=== PATIENT | female | born 1995 | race Two or more races ===

== ENCOUNTER 2018-01-30 20:04 | Emergency (ER) | payer SELFPAY ==
[~2018-01-30] VITALS: Ht 157.5 cm; Wt 76.2 kg
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
[2018-01-30] MEDS ORDERED: IBUPROFEN600 MG ORAL (22:27)
[2018-01-30] MEDS ORDERED: NORCO 5-325 TA1 EACH ORAL (22:27)
[2018-01-30 22:52] VITALS: BP_SYST 108; BP_SYST 11; BP_SYST 111; BP_DIAS 74; BP_DIAS 79
--- NOTE | 2018-01-31 09:48 | Diagnostic Imaging Report ---
Indication: Headache Technique: Contiguous 5 mm thick transaxial imaging of the head obtained in a Siemens Sensation [address] scanner. Soft tissue and bone windows generated. Automatic Exposure Control was utilized. Total Dose length Product (DLP): 1397.[address] Dose Index Volume (CTDIvol): 70.38 mGy Comparison: none Findings: The size and configuration of the cortical sulci, basal cisterns, and ventricles are within normal limits for age. There is no mass effect, midline shift, or edema identified. There is no evidence of acute hemorrhage or abnormal intra-axial or extra-axial fluid collections. The bones and soft tissues are unremarkable. Impression: No mass effect, edema or acute bleed. The CT scanner at [facility] is accredited by the [employer] and the scans are performed using dose optimization techniques as appropriate to a performed exam including Automatic Exposure control.
--- NOTE | 2018-01-31 10:23 | Diagnostic Imaging Report ---
Indication: Pain 3 views of the left knee were obtained. Findings: No acute fracture, malalignment, or joint effusion are identified. Joint space is relatively well-maintained. Impression: Negative for acute injury
--- NOTE | 2018-01-31 10:24 | Diagnostic Imaging Report ---
Indication: left shoulder pain Findings: 3 views of the left shoulder were obtained. Alignment of the left shoulder is normal. No acute fracture is identified. Soft tissues are unremarkable. Impression: No acute injury
--- NOTE | 2018-01-31 10:24 | Diagnostic Imaging Report ---
Indication: Back pain Comparison: None Findings: 2 views of the thoracic spine were obtained. Normal alignment is demonstrated. Vertebral body heights and intervertebral disc heights are normal. The posterior elements including the facets are unremarkable. Soft tissues are unremarkable. Impression: No acute injury appreciated.
--- NOTE | 2018-01-31 10:24 | Diagnostic Imaging Report ---
Indication: Chest pain Comparison: None A single view chest radiograph was obtained. Findings: Cardiomediastinal appearance is within normal limits for age. Pulmonary vascularity is appropriate. The diaphragmatic contour is smooth and costophrenic angles are sharp. No pleural effusions are identified. The bones are unremarkable. Cholecystectomy clips noted. Impression: No acute findings
--- NOTE | 2018-01-31 10:25 | Diagnostic Imaging Report ---
Indication: pain. Left hand pain Findings: 3 views of the left hand were obtained. Normal alignment is demonstrated. No acute fractures, erosions, or periosteal reaction are seen. Soft tissues are unremarkable. Impression: No acute findings.
== END 2018-01-30 22:53 | disposition home or self-care (01) ==
LOC: EMR 21:23
DX: S40.012A Contusion of left shoulder, initial encounter (principal); S60.222A Contusion of left hand, initial encounter; S20.219A Contusion of unspecified front wall of thorax, initial encounter; V43.52XA Car driver injured in collision with other type car in traffic accident, initial encounter; Y92.410 Unspecified street and highway as the place of occurrence of the external cause; M54.5 Low back pain; R51 Headache
CPT/HCPCS: 70450; 71045; 72070; 81025; 99284

== ENCOUNTER 2018-10-05 12:34 | Emergency (ER) | payer SELFPAY ==
[~2018-10-05] VITALS: Ht 157.5 cm; Wt 74.4 kg
[~2018-10-05 12:34] MED LIST: IBUPROFEN600 MG ORAL; NORCO 5-325 TA1 EACH ORAL
[2018-10-05] MEDS ORDERED: NKM (12:49)
[2018-10-05 13:15] VITALS: BP 112/79
--- NOTE | 2018-10-05 13:20 | Emergency Room Report ---
History of Present Illness General Chief Complaint: Upper Respiratory Illness Source: Patient Present Illness HPI 23 YO female to the emergency department complaining of cough, 2 out of 10 in severity right ear pain with sore throat, nasal congestion and rhinorrhea 3 days. Patient denies fevers or chills. Patient reports history of allergies. Patient denies headache, photophobia or neck pain/stiffness. Patient denies recent travel or ill contacts. Patient denies trauma to the ear or discharge from the ear. She denies sputum production and denies history of asthma. Patient reports she does feel as though she does have some wheezing. No other aggravating or relieving factors. Allergies: Coded Allergies: No Known Allergies (Unverified , 01/30/18) Patient History Past Medical History: see triage record Past Surgical History: none Pertinent Family History: none Last Menstrual Period: 04/04/18 Now: No Reviewed Nursing Documentation: PMH: Agreed; PSxH: Agreed Nursing Documentation-PMH Past Medical History: No Stated History Review of Systems All Other Systems: negative except mentioned in HPI Physical Exam Vital Signs Date Time Temp Pulse Resp B/P (MAP) Pulse Ox O2 Delivery O2 Flow Rate FiO2 10/05/18 12:46 97.9 95 18 108/77 97 Room Air Sp02 EP Interpretation: reviewed, normal General Appearance: no apparent distress, alert, GCS 15, non-toxic Head: normocephalic, atraumatic Eyes: bilateral eye normal inspection, bilateral eye PERRL ENT: hearing grossly normal, normal voice Neck: full range of motion Respiratory: chest non-tender, lungs clear, normal breath sounds, no respiratory distress, no accessory muscle use, speaking full sentences, wheezing - scant Cardiovascular #1: regular rate, rhythm, no edema Gastrointestinal: normal bowel sounds, non tender, soft Rectal: deferred Genitourinary: normal inspection Musculoskeletal: back normal, gait/station normal, normal range of motion, non- tender Neurologic: alert, oriented x3, responsive, motor strength/tone normal, sensory intact, speech normal, grossly normal Psychiatric: judgement/insight normal Skin: normal color, no rash, warm/dry, well hydrated Lymphatic: no adenopathy Medical Decision Making PA Attestation Dr. Boyle is my supervising Physician whom patient management has been discussed with. Diagnostic Impression: Primary Impression: Acute bronchitis Qualified Codes: J20.9 - Acute bronchitis, unspecified ER Course Ddx considered but are not limited to URI, pneumonia, PE, strep pharyngitis, meningitis. Vital signs: Pt.is afebrile VS are WNL H&PE are most consistent with bronchitis ORDERS: none required at this time, the diagnosis is clinical ED INTERVENTIONS: None required at this time. DISCHARGE: At this time pt. is stable for d/c to home. Will provide printed patient care instructions, and any necessary prescriptions. Care plan and follow up instructions have been discussed with the patient prior to discharge. Last Vital Signs Date Time Temp Pulse Resp B/P (MAP) Pulse Ox O2 Delivery O2 Flow Rate FiO2 10/05/18 12:52 95 18 Room Air 10/05/18 12:46 97.9 108/77 97 Disposition: HOME, SELF-CARE Condition: Stable Scripts Oxymetazoline HCl (Afrin) 15 Ml [place] 2 SPRAYS NASAL TWICE A DAY, #30 SPRAY DO NOT USE FOR MORE THAN 3 CONSECUTIVE DAYS. Prov: Amairani Ariza 10/05/18 Cetirizine Hcl/Pseudoephedrine (ZYRTEC-D TABLET) 1 Each Tab.er.12h 1 EACH ORAL Q12HR, #30 TAB Prov: Amairani Ariza 10/05/18 Codeine/Promethazine Hcl* (PROMETHAZINE-CODEINE SYRUP*) 118 Ml Syrup 5 ML ORAL Q6H PRN for For Cough, #120 ML 0 Refills Prov: Amairani Ariza 10/05/18 Albuterol Sulfate* (ALBUTEROL SULFATE MDI*) 8.5 Gm Hfa.aer.ad 2 PUFF INH Q4H, #1 INH 0 Refills Prov: Amairani Ariza 10/05/18 Departure Forms: Return to Work Return to Work Date: Oct 06, 2018 Work Restrictions: None Other Restrictions: May return Sooner if Symptoms have resolved. Return to Full Activity: Oct 06, 2018 Patient Instructions: Upper Respiratory Infection, Adult Additional Instructions: Take medications as directed. Follow up with a Primary Care Provider in 3-5 days, even if your symptoms have resolved. --Please review list of primary care clinics, if you do not already have a primary care provider Return sooner to ED if new symptoms occur, or current symptoms become worse. Do not drink alcohol, drive, or operate heavy machinery while taking Cough Syrup as this may cause drowsiness. - Please note that this Emergency Department Report was dictated using [employer] mender technology software, occasionally this can lead to erroneous entry secondary to interpretation by the dictation equipment. Amairani Ariza Oct 05, 2018 13:20
[2018-10-05] MEDS ORDERED: PROMETHAZINE-C118 M1 ORAL (13:22)
[2018-10-05] MEDS ORDERED: AFRIN NASAL SPR30 ML NASAL (13:22)
[2018-10-05] MEDS ORDERED: ZYRTEC-D TABLE1 EACH ORAL (13:22)
[2018-10-05] MEDS ORDERED: ALBUTEROL SULF8.5 GM INH (13:22)
== END 2018-10-05 13:30 | disposition home or self-care (01) ==
LOC: EMR 13:15
DX: J20.9 Acute bronchitis, unspecified (principal)
CPT/HCPCS: 99283